=== PATIENT | female | born 1960 | race Caucasian/White ===

== ENCOUNTER → 2019-11-10 | Outpatient (CLI) | payer OTHER ==
[~2019-11-10] VITALS: Ht 167.6 cm; Wt 108.9 kg
[~2019-11-10] MED LIST: ADVAIR 250-501 EACH INH; CINNAMON500 MG PO; FARXIGA5 MG PO; FISH OIL 1,001000 M2 PO; GLUCOSAMINE CH1 EAC2 PO; HYDROCHLOROTHIA25 M2 PO; HYDROCODONE-AP1 EA11 PO; INCRUSE ELLI62.5 MCG INH; LISINOPRIL10 MG PO; LOPID600 MG PO; LORATIDINE 10 M10 M1 PO; METFORMIN HCL500 MG PO; NORCO 5-325 TA1 EACH PO; NORVASC 5 MG TAB5 MG PO; PRINIVIL40 MG PO; PROAIR HFA8.5 GM INH; SPIRIVA INH; SYMBICORT160 MCG/4. INH; VICTOZA0.6 MG/0.1 SUBQ; VITAMIN D 5050000 I1; VITAMIN D1000 UNI1 PO
--- NOTE | 2019-11-14 11:17 | P ---
[facility] [place] [address] PROCEDURE REPORT Name: AKSHAT SPANN Room #: REG [facility]#: [id number] Admission: 11/10/19 Attend Phys: Kris Enamorado MD Discharge: Date of : 58 Report #: [id number] THIS REPORT FOR: cc: Mireya Parker MD, Cora A. MD Thesing,Kris Gomes MD ~ CC: Mireya Enamorado DATE OF SERVICE: 11/10/2019 OUTPATIENT COLONOSCOPY REPORT BRIEF HISTORY: The patient is a 59-year-old woman who has a history of 4 adenomas removed about 3 years ago. She presents for high risk screening colonoscopy. In addition, her mother had surgery for an advanced adenoma. PREOPERATIVE DIAGNOSES: History of colon polyps and family history of colon polyps. POSTOPERATIVE DIAGNOSES: 1. Multiple colon polyps. 2. Small internal hemorrhoids. MEDICATIONS: Deep sedation with propofol per anesthesia. SPECIMENS: 1. Polyp from cecum. 2. Polyp from hepatic flexure. 3. Polyps x 2, distal transverse colon. ESTIMATED BLOOD LOSS: 3 mL. PROCEDURE: Colonoscopy to cecum and terminal ileum with snare polypectomy and biopsy. FINDINGS: Prior to propofol sedation, procedure of colonoscopy was discussed with the patient as well as potential risks and its complications. She indicates she understands and desires to proceed. DESCRIPTION OF PROCEDURE: With the patient in left lateral decubitus position, digital examination was completed, which revealed no abnormalities. Subsequently, the Olympus video colonoscope was introduced in the rectum, advanced under direct vision to the cecum. Done with minimal difficulty. The cecum was identified by the ileocecal valve and the appendiceal orifice. I was [facility] [address] [place] [address] PROCEDURE REPORT Name: AKSHAT SPANN Room #: REG [facility]#: [id number] Admission: 11/10/19 Attend Phys: Kris Enamorado MD Discharge: Date of : 58 Report #: [id number] able to visualize the distal segment of terminal ileum, which was inspected and noted to be unremarkable. At that point, the scope was slowly withdrawn and careful circumferential views were obtained. Upon slow withdrawal of the scope, there were some limitations of the prep, but with irrigation and suctioning, we are overall able to obtain a good prep. Within the cecum, a diminutive polyp was seen and removed with biopsy forceps. At the hepatic flexure, another diminutive polyp was seen and removed with biopsy forceps. In the distal transverse colon, there were 2 flat polyps in the range of about 5-6 mm, both removed with cold snare polypectomy. As the scope was withdrawn, the remainder of the colon, no additional polyps were seen. The exam was otherwise unremarkable. The scope was withdrawn in the rectum. Upon retroflexion, small hemorrhoids were seen. Scope was withdrawn. The patient tolerated the procedure well. CONDITION OF THE PATIENT UPON DISCHARGE: Following procedure, the patient drowsy, aroused, conversant and will be discharged home when fully ambulatory. INSTRUCTIONS TO THE PATIENT AND FAMILY AT THE TIME OF DISCHARGE: We will follow up on the pathology. If 3 or more polyps are adenomas, she is to return in 3 years, otherwise she is to return in 5 years for high risk screening colonoscopy. Withdrawal time from the cecum was 17 minutes and 3 seconds, which includes a clean-up as well as polyp removal. <ELECTRONICALLY SIGNED> By: Kris Enamorado MD 11/14/19 1117 [id number] [id number] Kris Enamorado MD /nt
--- NOTE | 2019-11-14 17:09 | PATH ---
[facility] [place] [address] PATHOLOGY RPT PROCEDURE Name: AKSHAT SPANN Room #: REG [facility] Sammy.#: [id number] Admission: 11/10/19 Date of : 58 Discharge: Report #: [id number] Path Case #: [id number] [facility] Accession Number: [id number] . 01 Material submitted: . PART A: cecum - POLYP AT CECUM PART B: hepatic flexure - POLYP AT HEPATIC FLEXURE PART C: colon - POLYP AT DISTAL TRANSVERSE COLON X2. Modifiers: distal, transverse . 01 Clinical history: . Pre-op diagnosis: History of polyps Post-op diagnosis: Colon polyps . 02 Diagnosis: A. Polyp, at cecum, endoscopic biopsy: - Minute tubular adenoma. - Negative for high grade dysplasia. . B. Polyp, at hepatic flexure, endoscopic biopsy: - Tubular adenoma. - Negative for high grade dysplasia. . C. Polyp x2 at distal transverse colon, endoscopic biopsy: - Tubular adenoma identified in multiple fragments admixed with hyperplastic changes. - Negative for high grade dysplasia. . (IUV:mml; 11/14/2019) QLM 11/14/2019 1403 Local . 02 Electronically signed: . Negar Bee MD, Pathologist NPI- [id number] . 01 Gross description: . A. The specimen is received in formalin, labeled "[place], polyp at cecum". Received is a segment of pale [place] soft tissue measuring 0.7 cm in maximum dimensions. The specimen is submitted entirely in cassette A1. . B. The specimen is received in formalin, labeled "[place], polyp at hepatic flexure". Received is a segment of pale [place] soft tissue measuring 0.5 cm in maximum dimensions. The specimen is submitted entirely in cassette B1. . C. The specimen is received in formalin, labeled "[place], polyp at distal transverse colon x2". Received are five segments of pale [place] [address] [address] PATHOLOGY RPT PROCEDURE Name: AKSHAT SPANN Room #: REG [facility].#: [id number] Admission: 11/10/19 Date of : 58 Discharge: Report #: [id number] Path Case #: [id number] soft tissue ranging in size from 0.3 to 1.1 cm in maximum dimensions. The specimen is submitted entirely in cassette C1. (CAA; 11/11/2019) QAC/QAC 11/11/2019 1051 Local . 02 Pathologist provided ICD-10: D12.0, D12.3, K63.5 . 02 CPT . 602092, 903965, 947999 Specimen Comment: A courtesy copy of this report has been sent to [phone], [phone] Specimen Comment: [phone] Specimen Comment: Report sent to / DR CHAVEZ Performed at: 01 [facility] [address] [place] [address] [address], [place] [id number] MD Georges Jeter MD Phone: [phone] Performed at: [address] [id number] MD Negar Bee MD Phone: [phone]
== END | disposition home or self-care (01) ==
LOC: GI 07:00
DX: Z12.11 Encounter for screening for malignant neoplasm of colon (principal); Z86.010 Personal history of colon polyps; Z83.71 Family history of colonic polyps; K64.8 Other hemorrhoids; D12.0 Benign neoplasm of cecum; D12.3 Benign neoplasm of transverse colon; I10 Essential (primary) hypertension; E11.9 Type 2 diabetes mellitus without complications; J44.9 Chronic obstructive pulmonary disease, unspecified; Z98.890 Other specified postprocedural states; Z79.899 Other long term (current) drug therapy; Z87.891 Personal history of nicotine dependence; Z88.8 Allergy status to other drugs, medicaments and biological substances